=== PATIENT | male | born 1970 | race African-American/Black ===

== ENCOUNTER 2017-01-20 16:18 | Emergency (ER) | payer MEDICAID ==
[~2017-01-20] VITALS: Ht 177.8 cm; Wt 90.0 kg
[2017-01-20] MEDS ORDERED: LORAZEPAM 2MG/ML CPJ ONE (16:33)
[2017-01-20] MEDS ORDERED: LORAZEPAM 2MG/ML CPJ IV ONE ×2 (17:15→19:30)
[2017-01-20] MEDS ORDERED: LEVETIRACETAM 500MG PREMIX 100 ML IV ONE (17:15)
[2017-01-20 17:22] LABS: HEMOGLOBIN. 14.6 g/dL (14.0-18.0); MEAN CORPUSCULAR HEMOGLOBIN 31.9 pg (28.0-32.0); MEAN CORPUSCULAR VOLUME 93.8 fL (80.0-94.0); MEAN PLATELET VOLUME 7.1 fl (7.4-10.4); PLATELET 160 x1000/uL (130-400); RED BLOOD CELL COUNT 4.58 mill/uL (4.7-6.1); RED CELL DISTRIBUTION WIDTH 14.5 % (11.6-14.6)
[2017-01-20 17:36] LABS: CARBON DIOXIDE 16 mEq/L (21-32); CHLORIDE 107 mEq/L (98-107); ETHANOL BLOOD < 10 mg/dL; PHENYTOIN 1.1 ug/mL (10-20)
[2017-01-20 17:40] LABS: CARBAMAZEPINE < 0.5 ug/mL (4-12); PHENOBARBITAL < 2.1 ug/mL (15.0-40.0); PLATELET ESTIMATE NORMAL; VALPROIC ACID < 3.0 ug/mL (50-100)
[2017-01-20 18:30] VITALS: BP 129/81
[2017-01-20] MEDS ORDERED: PHENYTOIN SODIUM 1,000 MG in SODIUM CHLORIDE 0.9% 100 ML IV ONE (18:30)
[2017-01-20 18:46] LABS: CLARITY URINE CLOUDY (CLEAR); COLOR URINE YELLOW (YELLOW); GLUCOSE URINE NEGATIVE (NEGATIVE); KETONES URINE TRACE (NEGATIVE); LEUKOCYTE ESTERASE URINE NEGATIVE (NEGATIVE); NITRITE URINE NEGATIVE (NEGATIVE); OCCULT BLOOD URINE 1+ (NEGATIVE); PROTEIN URINE 2+ (NEGATIVE); SPECIFIC GRAVITY URINE 1.013 (1.005-1.030); UROBILINOGEN URINE 0.2 E.U./dL (0.2-1.0)
[2017-01-20 19:21] LABS: *AMPHETAMINES SCREEN URINE PRESUMTIVE POSITIVE (NEGATIVE); *BARBITURATES SCREEN URINE NEGATIVE (NEGATIVE); *BENZODIAZEPINES SCREEN URINE NEGATIVE (NEGATIVE); *COCAINE SCREEN URINE NEGATIVE (NEGATIVE); CANNABINOID URINE SCREEN NEGATIVE (NEGATIVE); METHADONE URINE SCREEN NEGATIVE (NEGATIVE); OPIATES URINE SCREEN NEGATIVE (NEGATIVE); PHENCYCLIDINE URINE SCREEN NEGATIVE (NEGATIVE)
== END 2017-01-21 00:54 | disposition home or self-care (01) ==
LOC: ER 16:23
DX: S00.512A Abrasion of oral cavity, initial encounter (principal); R56.9 Unspecified convulsions; F15.10 Other stimulant abuse, uncomplicated; R79.1 Abnormal coagulation profile; Z88.0 Allergy status to penicillin; X58.XXXA Exposure to other specified factors, initial encounter; Y93.89 Activity, other specified; Y92.89 Other specified places as the place of occurrence of the external cause; Y99.8 Other external cause status
CPT/HCPCS: 36415; 80053; 80156; 80165; 80184; 80185; 80305; 80307; 80329; 81001; 85025; 93005; 96365; 96366; 96367; 96375; 99285; G0482; J1165; J1953; J2060; J7050